=== PATIENT | female | born 1985 | race Caucasian/White ===

== ENCOUNTER 2017-07-25 09:32 | Outpatient (CLI) | payer BC ==
[~2017-07-25] VITALS: Ht 162.6 cm; Wt 93.4 kg
[~2017-07-25 09:32] MED LIST: ALBUTEROL0.83 MG/ML IH; BCP TD; BIRTH CONTROL; CETIRIZINE; DAYQUIL; FLEXERIL 1010 MG/TAB PO; NORCO 325 MG-51 TAB PO; PREDNISONE20 MG PO; ZITHROMAX Z PA250 MG PO
[2017-07-25 09:47] VITALS: BP 124/85; PULSE 116; TEMP 97.8
[2017-07-25 10:00] VITALS: BP 124/85; PULSE 116; TEMP 97.8
[2017-07-25] MEDS ORDERED: PRENATAL (10:09)
[2017-07-25] MEDS ORDERED: ZYRTEC 10MG10 MG PO (10:09)
[2017-07-25 10:20] VITALS: BP 120/77; PULSE 93
[2017-07-25 11:13] VITALS: BP 120/77; PULSE 93
[2017-07-25 12:45] VITALS: BP 123/88; PULSE 99
== END 2017-07-25 12:55 | disposition home or self-care (01) ==
LOC: LDRO 09:32
DX: Z34.03 Encounter for supervision of normal first pregnancy, third trimester (principal); Z3A.39 39 weeks gestation of pregnancy

== ENCOUNTER 2017-07-27 10:16 | Inpatient (IN) | payer BC ==
[~2017-07-27] VITALS: Ht 162.6 cm; Wt 93.6 kg
[2017-07-27] VITALS (57 sets, daily range): BP systolic 103–137; BP diastolic 51–97; PULSE 59–121; TEMP 98.1–98.8
[~2017-07-27 10:16] MED LIST changes: +PRENATAL; +ZYRTEC 10MG10 MG PO
[2017-07-27 11:51] LABS: BASO % 0.3 % (0.0-2.0); EOS # 0.1 (0.0-0.7); EOS % 1.5 % (0-4.0); GRAN # 6.4 (1.4-6.5); GRAN % 70.6 % (42.2-75.2); LYMPH # 1.8 (1.2-3.4); LYMPH % 20.1 % (20.0-51.0); MEAN CELL VOLUME 94 fl (80.0-100.0); MEAN CORPUSCULAR HEMOGLOBIN 32 pg (27.0-31.0); MEAN CORPUSCULAR HGB CONC 34 g/dl (33.0-37.0); MEAN PLATELET VOLUME 10.6 fl (7.4-10.4); MONO # 0.6 (0.1-0.6); MONO % 6.9 % (1.7-9.3); PLATELET COUNT 238 K/mm3 (130-400); RED BLOOD COUNT 3.73 M/mm3 (4.10-5.30)
[2017-07-28] VITALS (19 sets, daily range): BP systolic 102–144; BP diastolic 60–86; PULSE 98–134; TEMP 97.7–99.1
[2017-07-29 08:04] VITALS: BP 121/69; PULSE 92; TEMP 97.7
[2017-07-29] MEDS ORDERED: PERCOCET 325 MG1 TA2 PO (12:00)
[2017-07-29] MEDS ORDERED: IBU800 M1 PO (12:00)
[2017-07-29 15:00] VITALS: BP 133/69; PULSE 108
== END 2017-07-29 16:45 | disposition home or self-care (01) | DRG 775 ==
LOC: LDR 10:16 → OB 07-28 05:00
PROVIDERS: Obstetrics & Gynecology
PROC: 10E0XZZ Delivery of Products of Conception, External Approach (ICD-10-PCS; principal; 2017-07-28)
PROC: 0KQM0ZZ Repair Perineum Muscle, Open Approach (ICD-10-PCS; 2017-07-28)
DX: O70.1 Second degree perineal laceration during delivery (principal); Z37.0 Single live birth; Z3A.39 39 weeks gestation of pregnancy; O42.12 Full-term premature rupture of membranes, onset of labor more than 24 hours following rupture
CPT/HCPCS: J0290; J1580; J2590; J2795; J7120

== ENCOUNTER → 2019-12-01 | Outpatient (CLI) | payer BC ==
[~2019-12-01] MED LIST changes: +IBU800 M1 PO; +PERCOCET 325 MG1 TA2 PO
== END ==
LOC: MC.RAD 08:15
DX: N60.01 Solitary cyst of right breast (principal)

== ENCOUNTER → 2020-08-11 | Outpatient (CLI) | payer BC ==
[~2020-08-11] MED LIST changes: +IBU600 MG PO
== END ==
LOC: ZCOL.LAB 09:34
DX: Z20.822 Contact with and (suspected) exposure to COVID-19 (principal)

== ENCOUNTER 2020-08-13 06:27 | Inpatient (IN) | payer BC ==
[2020-08-13] VITALS (56 sets, daily range): BP systolic 81–128; BP diastolic 51–79; PULSE 86–121; TEMP 97.7–98.2
[~2020-08-13] VITALS: Ht 157.5 cm; Wt 95.9 kg
[~2020-08-13 06:27] MED LIST changes: -IBU600 MG PO
[2020-08-13] MEDS ORDERED: ZYRTEC 10MG10 MG PO (06:39)
--- NOTE | 2020-08-13 06:40 | NUR ---
Presents to L&D for scheduled induction of labor. Ambulatory to unit. Accompanied by spouse.
[2020-08-13 07:36] LABS: BASO % 0.2 % (0.0-2.0); EOS # 0.2 (0.0-0.7); EOS % 2.2 % (0-4.0); GRAN # 6.8 (1.4-6.5); GRAN % 68.5 % (42.2-75.2); HEMOGLOBIN 11.4 g/dl (12.5-16.0); LYMPH # 2.2 (1.2-3.4); LYMPH % 22.3 % (20.0-51.0); MEAN CELL VOLUME 94 fl (80.0-100.0); MEAN CORPUSCULAR HEMOGLOBIN 31 pg (27.0-31.0); MEAN CORPUSCULAR HGB CONC 33 g/dl (33.0-37.0); MONO # 0.6 (0.1-0.6); MONO % 6.3 % (1.7-9.3); PLATELET COUNT 320 K/mm3 (130-400); RED BLOOD COUNT 3.67 M/mm3 (4.10-5.30); REDCELL DISTRIBUTION WIDTH-CV 14.2 % (11.5-14.5)
[2020-08-13 07:37] LABS: HEMATOCRIT 34.3 % (37.0-47.0)
--- NOTE | 2020-08-13 08:04 | NUR ---
here for evaluation, am rounds. AROM by @ 2247, clear fluid noted, some bloody show noted. SVE per /-2. Discusses patient may have epidural whenever she wants it.
--- NOTE | 2020-08-13 08:10 | NUR ---
bicycle technician in to redraw, as stated blood sample off of IV start hemolyzed.
--- NOTE | 2020-08-13 09:55 | NUR ---
Up to BR, requests epidural @ this time. DULCE Robbins, in-house, notified.
--- NOTE | 2020-08-13 10:25 | NUR ---
Sitting upright at side of bed for epidural placement. DULCE Robbins, here. 1032: Single shot dose administered by HEBREW CANTOR. No adverse reactions noted. Tolerates procedure well.
--- NOTE | 2020-08-13 11:50 | NUR ---
Large amount of amniotic fluid gush at this time. Linens changed out, jonna care provided, as well as new socks.
--- NOTE | 2020-08-13 12:36 | NUR ---
Repositioned to right lateral with peanut ball.
--- NOTE | 2020-08-13 13:07 | NUR ---
here for evaluation. SVE 4.5/80/-3. places IUPC with explanation to patient. Repositioned to left lateral with peanut ball following exam.
--- NOTE | 2020-08-13 15:00 | NUR ---
Repositioned to sitting upright.
--- NOTE | 2020-08-13 15:48 | NUR ---
Repositioned to right lateral with peanut ball after noting 3 consecutive late decelerations.
--- NOTE | 2020-08-13 17:08 | NUR ---
Patient c/o pain with contractions, more on right side. Repeat SVE AL/100/-1. Repositioned to right lateral. Patient pushes epidural FINANCIAL DIRECTOR button.
--- NOTE | 2020-08-13 17:33 | NUR ---
Quevedo catheter/IUPC removed @ this time prior to pushing attempts.
--- NOTE | 2020-08-13 17:38 | NUR ---
First push attempt with instruction.
[2020-08-14 00:30] VITALS: BP 130/65; PULSE 62; TEMP 98
--- NOTE | 2020-08-14 01:50 | NUR ---
PUSHING WITH PATIENT AT 1830. PUSHING WAS STOPPED DUE TO DOCTORS ORDERS. DR ENCARNACION AT BEDSIDE AT 1852. RESUMED PUSHING WITH PATIENT. OF VIABLE MALE INFANT AT 1900
--- NOTE | 2020-08-14 02:16 | NUR ---
METHERGINE GIVEN PER DR. ENCARNACION'S ORDERS
[2020-08-14 04:00] VITALS: BP 111/49; PULSE 64; TEMP 98.2
[2020-08-14 09:30] VITALS: BP 110/65; PULSE 87; TEMP 98
[2020-08-14] MEDS ORDERED: IBU600 MG PO (09:44)
--- NOTE | 2020-08-14 12:26 | NUR ---
Welcome Desk Agent stopped by and offered prayer and congrats to patient.
[2020-08-14 12:57] VITALS: BP 99/59; PULSE 93
[2020-08-14 16:45] VITALS: BP 107/63; PULSE 80; TEMP 98.2
[2020-08-14 19:55] VITALS: BP 112/63; PULSE 96; TEMP 98.6
--- NOTE | 2020-08-14 20:10 | NUR ---
LABS AND DISCHARGE PAPERWORK REVIEWED WITH PT, QUESTIONS ENCOURAGED AND ANSWERED, UNDERSTANDING VERBALIZED. BANDS MATCHED AND CUT. BABY TO INFANT CARRIER. PT, AND SPOUSE OFF THE UNIT AMBULATORY, ESCORTED BY Symone CLARK DIRECTOR OF NUCLEAR MEDICINE.
== END 2020-08-14 20:10 | disposition home or self-care (01) | DRG 807 ==
LOC: LDR 06:27 → OB 07:04
PROVIDERS: ADMIT Obstetrics & Gynecology
PROC: 10E0XZZ Delivery of Products of Conception, External Approach (ICD-10-PCS; principal; 2020-08-13)
PROC: 0KQM0ZZ Repair Perineum Muscle, Open Approach (ICD-10-PCS; 2020-08-13)
DX: O99.284 Endocrine, nutritional and metabolic diseases complicating childbirth (principal); Z37.0 Single live birth; O70.1 Second degree perineal laceration during delivery; Z3A.39 39 weeks gestation of pregnancy
CPT/HCPCS: J1200; J2210; J2405; J2590; J7120